=== PATIENT | male | born 1935 | race Caucasian/White ===

== ENCOUNTER → 2017-12-01 | Outpatient (CLI) | payer MEDICARE, OTHER ==
[~2017-12-01] MED LIST: DIPH50 PO; LUMIGAN2.5 ML BOTHEYES; NAPR220 PO; Toprol Xl25 MG PO
[2017-12-01 16:28] LABS: Prothrombin Time Results 83.3 Sec (9.7-11.5)
[2017-12-01 16:33] LABS: International Normalized Ratio 7.52
== END ==
LOC: LAB SHORT 13:12
PROVIDERS: Physician Assistant Surgical
DX: Z79.01 Long term (current) use of anticoagulants (principal); Z51.81 Encounter for therapeutic drug level monitoring
CPT/HCPCS: 85610

== ENCOUNTER → 2018-01-06 | Outpatient (CLI) | payer MEDICARE, OTHER | LOC: LAB SHORT 16:45 → LAB 16:45 | DX: D48.5 Neoplasm of uncertain behavior of skin (principal) | CPT/HCPCS: 88305 ==

== ENCOUNTER → 2019-03-15 | Outpatient (CLI) | payer MEDICARE, OTHER ==
[2019-03-15 17:48] LABS: International Normalized Ratio 1.2; Prothrombin Time Results 12.5 Sec (9.7-11.5)
== END ==
LOC: LAB SHORT 17:05 → LAB EV 17:05
PROVIDERS: Physician Assistant
DX: I48.91 Unspecified atrial fibrillation (principal)
CPT/HCPCS: 85610

== ENCOUNTER → 2019-03-20 | Outpatient (CLI) | payer MEDICARE, OTHER ==
[2019-03-20 18:03] LABS: International Normalized Ratio 1.08; Prothrombin Time Results 11.4 Sec (9.7-11.5)
== END | disposition home or self-care (01) ==
LOC: LAB SHORT 17:19 → LAB EV 17:19
PROVIDERS: Physician Assistant
DX: Z79.01 Long term (current) use of anticoagulants (principal); Z51.81 Encounter for therapeutic drug level monitoring
CPT/HCPCS: 85610; 85730

== ENCOUNTER → 2019-03-30 | Outpatient (CLI) | payer MEDICARE, OTHER ==
[2019-03-30 15:50] LABS: International Normalized Ratio 4.79
== END | disposition home or self-care (01) ==
LOC: LAB SHORT 14:04 → LAB EV 14:04
PROVIDERS: Physician Assistant
DX: Z79.01 Long term (current) use of anticoagulants (principal); Z51.81 Encounter for therapeutic drug level monitoring
CPT/HCPCS: 85610

== ENCOUNTER → 2019-05-02 | Outpatient (CLI) | payer MEDICARE, OTHER ==
[2019-05-02 15:02] LABS: Prothrombin Time Results >90.0 Sec (9.7-11.5)
[2019-05-02 15:04] LABS: International Normalized Ratio No Calc
== END | disposition home or self-care (01) ==
LOC: LAB SHORT 14:11 → LAB EV 14:11
PROVIDERS: General Practice
DX: Z79.01 Long term (current) use of anticoagulants (principal); Z51.81 Encounter for therapeutic drug level monitoring
CPT/HCPCS: 85610

== ENCOUNTER 2020-02-22 22:52 | Emergency (ER) | payer MEDICARE, OTHER ==
[~2020-02-22] VITALS: Ht 177.8 cm; Wt 74.8 kg
[2020-02-22 23:35] LABS: BASOPHILS ABSOLUTE AUTO 0.07 K/mm3 (0.00-0.23); BASOPHILS PERCENT AUTO 1 % (0-2); EOSINOPHILS PERCENT AUTO 6 % (0-6); Hematocrit 40.7 % (37.0-53.0); Hemoglobin 12.9 g/dL (13.5-17.5); IMMATURE GRAN ABSOLUTE AUTO 0.03 K/mm3 (0.00-0.10); IMMATURE GRAN PERCENT AUTO 0 % (0-1); LYMPHOCYTES ABSOLUTE AUTO 1.62 K/mm3 (0.84-5.20); LYMPHOCYTES PERCENT AUTO 23 % (21-46); MONOCYTES ABSOLUTE AUTO 0.66 K/mm3 (0.16-1.47); MONOCYTES PERCENT AUTO 9 % (4-13); Mean Corpuscular HGB 31.4 pg (26.0-34.0); Mean Corpuscular HGB Conc 31.7 g/dL (31.5-36.5); Mean Corpuscular Volume 99 fL (80-100); Mean Platelet Volume 11.3 fL (9.1-12.4); NEUTROPHILS ABSOLUTE AUTO 4.33 K/mm3 (1.96-9.15); NEUTROPHILS PERCENT AUTO 61 % (41-73); Platelet Count 196 K/mm3 (150-400); RDW Standard Deviation 50.8 fL (35.1-46.3); Red Blood Cell Count 4.11 M/mm3 (4.30-5.90); White Blood Cell Count 7.11 K/mm3 (4.00-11.30)
[2020-02-22 23:49] LABS: Bun/Creatinine Ratio 22.1 (12.0-20.0); Calcium, Blood 8.7 mg/dL (8.5-10.1); Creatinine, Blood 1.31 mg/dL (0.60-1.20); International Normalized Ratio 2.65; Potassium, Blood 4.1 mmol/L (3.5-5.5); Prothrombin Time Results 26.8 Sec (9.7-11.5)
[2020-02-23] MEDS ORDERED: WARF1 (00:47)
== END 2020-02-23 01:04 | disposition home or self-care (01) ==
LOC: ER 22:52
PROVIDERS: Emergency Medicine
DX: S61.512A Laceration without foreign body of left wrist, initial encounter (principal); S51.812A Laceration without foreign body of left forearm, initial encounter; S00.83XA Contusion of other part of head, initial encounter; S60.012A Contusion of left thumb without damage to nail, initial encounter; I50.9 Heart failure, unspecified; W19.XXXA Unspecified fall, initial encounter
CPT/HCPCS: 36415; 70450; 70486; 80048; 85025; 85610; 99284-25

== ENCOUNTER 2020-02-26 12:32 | Emergency (ER) | payer MEDICARE, OTHER ==
[~2020-02-26] VITALS: Ht 170.2 cm; Wt 74.8 kg
[~2020-02-26 12:32] MED LIST changes: +WARF1
== END 2020-02-26 13:58 | disposition home or self-care (01) ==
LOC: ER 12:32
DX: S51.812D Laceration without foreign body of left forearm, subsequent encounter (principal); S51.811D Laceration without foreign body of right forearm, subsequent encounter; I50.9 Heart failure, unspecified
CPT/HCPCS: 99282

== ENCOUNTER 2020-04-23 15:44 | Inpatient (IN) | payer MEDICARE, OTHER ==
[~2020-04-23] VITALS: Ht 167.6 cm; Wt 72.0 kg
[2020-04-23] MEDS ORDERED: WARF5 PO (16:04)
[2020-04-23] MEDS ORDERED: FURO40 PO (16:06)
[2020-04-23] MEDS ORDERED: METO25ER PO (16:06)
[2020-04-23] MEDS ORDERED: Combigan Eye Dro5 ML BOTHEYES (16:07)
[2020-04-23] MEDS ORDERED: LUMIGAN2.5 ML BOTHEYES (16:07)
[2020-04-23 16:10] LABS: BASOPHILS ABSOLUTE AUTO 0.06 K/mm3 (0.00-0.23); BASOPHILS PERCENT AUTO 1 % (0-2); EOSINOPHILS ABSOLUTE AUTO 0.01 K/mm3 (0.00-0.68); EOSINOPHILS PERCENT AUTO 0 % (0-6); Hematocrit 25.5 % (37.0-53.0); Hemoglobin 7.8 g/dL (13.5-17.5); IMMATURE GRAN ABSOLUTE AUTO 0.11 K/mm3 (0.00-0.10); IMMATURE GRAN PERCENT AUTO 1 % (0-1); LYMPHOCYTES ABSOLUTE AUTO 1.86 K/mm3 (0.84-5.20); LYMPHOCYTES PERCENT AUTO 15 % (21-46); MONOCYTES ABSOLUTE AUTO 0.89 K/mm3 (0.16-1.47); MONOCYTES PERCENT AUTO 7 % (4-13); Mean Corpuscular HGB 30.4 pg (26.0-34.0); Mean Corpuscular HGB Conc 30.6 g/dL (31.5-36.5); Mean Corpuscular Volume 99 fL (80-100); Mean Platelet Volume 12.5 fL (9.1-12.4); NEUTROPHILS ABSOLUTE AUTO 9.91 K/mm3 (1.96-9.15); NEUTROPHILS PERCENT AUTO 77 % (41-73); Platelet Count 170 K/mm3 (150-400); RDW Coefficient Variation 13.5 % (11.7-14.2); RDW Standard Deviation 47.9 fL (35.1-46.3); Red Blood Cell Count 2.57 M/mm3 (4.30-5.90); White Blood Cell Count 12.84 K/mm3 (4.00-11.30)
[2020-04-23 16:30] LABS: Prothrombin Time Results 54.5 Sec (9.7-11.5)
[2020-04-23 16:35] LABS: Alanine Aminotransfer (ALT/SGP 17 U/L (12-78); Albumin/Globulin Ratio 1.1 (0.8-1.8); Alk Phos 46 U/L (50-136); Anion Gap 9 mmol/L (6-16); Aspartate Aminotrans (AST/SGOT 34 U/L (12-37); Bilirubin, Total 0.5 mg/dL (0.1-1.0); Blood Urea Nitrogen 75 mg/dL (8-24); Bun/Creatinine Ratio 73.5 (12.0-20.0); CO2, Blood 21 mmol/L (21-32); Chloride, Blood 109 mmol/L (98-108); Creatinine, Blood 1.02 mg/dL (0.60-1.20); Globulin, Blood 2.8 g/dL (2.2-4.0); Glomerular Filtration Rate >60 (60-); Glucose, Blood 131 mg/dL (70-99); Potassium, Blood 4.5 mmol/L (3.5-5.5); Sodium, Blood 139 mmol/L (136-145); Total Protein, Blood 5.8 g/dL (6.4-8.2)
[2020-04-23 16:39] LABS: International Normalized Ratio 5.62
--- NOTE | 2020-04-23 19:20 | NUR ---
SHIFT SUMMARY: PT ARRIVED FROM ED 1817. UNIT OF BLOOD RUNNING AND PROTONIX GTT. AFIB 104 ON TELE. ALERT AND ORIENTED, COOPERATIVE, PALE. BLACK SMEAR NOTED TO ED BLANKETS. DR RAGLAND PLANS TO SEE PT IN AM. NO ACUTE NEEDS OR CONCERNS AT THIS TIME.
[2020-04-24 03:52] LABS: Hematocrit 24.8 % (37.0-53.0); Hemoglobin 7.9 g/dL (13.5-17.5)
[2020-04-24 04:06] LABS: International Normalized Ratio 1.35
[2020-04-24 04:10] LABS: Prothrombin Time Results 14.2 Sec (9.7-11.5)
[2020-04-24 04:14] LABS: Anion Gap 8 mmol/L (6-16); Blood Urea Nitrogen 56 mg/dL (8-24); Bun/Creatinine Ratio 57.7 (12.0-20.0); CO2, Blood 25 mmol/L (21-32); Calcium, Blood 7.7 mg/dL (8.5-10.1); Chloride, Blood 111 mmol/L (98-108); Creatinine, Blood 0.97 mg/dL (0.60-1.20); Glomerular Filtration Rate >60 (60-); Glucose, Blood 103 mg/dL (70-99); Potassium, Blood 3.6 mmol/L (3.5-5.5); Sodium, Blood 144 mmol/L (136-145)
[2020-04-24 05:44] LABS: Hematocrit 24.7 % (37.0-53.0)
--- NOTE | 2020-04-24 05:56 | NUR ---
SHIFT SUMMARY PT REMAINS A&O X4, 1 PERSON ASSIST IN TH E ROOM USING FWW. PT HAS DENIED ANY DIZZINESS,CP/PRESSURE. PROTONIX GTT INFUSING PER EMAR, ZOFRAN GIVEN X1 PER PT REQUEST. NO EMESIS/STOOLS NOTED THROUGH THE NIGHT. PT HAS RECIEVED A TOTAL OF 2 UNITS PRBC'S & 2 UNITS FFP PER ORDERS, NS CURRENTLY INFUSING @ 75 ML/HR. PT IS HYPOTENSIVE THIS AM BUT REMAINS ASYMPTOMATIC. SMALL SIPS OF CLEARS TOLERATED THROUGH THE NIGHT. PT DENIES PAIN. WTCM, CALL LIGHT IN REACH.
[2020-04-24 08:04] LABS: Hematocrit 24.9 % (37.0-53.0)
--- NOTE | 2020-04-24 10:35 | NUR ---
UPDATE PT ALERT AND ORIENTED. VSS. BP LOW THIS AM. HOLDING METOPROLOL UNTIL AFTER PROCEDURE. GI FOLLOWING PT AND PLAN FOR ENDOSCOPY. DAY SURGERY NURSE HERE TO TAKE PT. WILL AWAIT RETURN.
--- NOTE | 2020-04-24 10:55 | NUR ---
PT INTO SDS VIA GURNEY FROM PCU. History, Chart, Medications and Allergies reviewed before start of procedure. Lungs clear T/O to Auscultation. Patient confirms NPO status and agrees with scheduled surgery.
--- NOTE | 2020-04-24 11:13 | NUR ---
04/24/20 1113 LISA BREEN History, Chart, Medications and Allergies reviewed before start of procedure. 3-LEAD EKG REVIEWED WITH PHYSICIAN PRIOR TO START OF PROCEDURE. O2 VIA N/C INTACT THROUGHOUT SEDATION/PROCEDURE. MONITOR INTACT WITH CONTINUOUS PULSE OXIMETRY AND INTERMITTENT BP. MAC WITH DR. RIVERS.
--- NOTE | 2020-04-24 12:13 | NUR ---
UPDATE PT RETURNED FROM RECOVERY. VS STABLE. 02 SATS REMAIN ABOVE 90% ON RA. BP LOW, BUT STABLE. PT DENIES ANY PAIN. PT TO STAY NPO UNTIL UPPER GI XR THIS AFTERNOON. WILL CONTINUE TO MONITOR CLOSELY.
[2020-04-24 14:24] LABS: Hematocrit 26.1 % (37.0-53.0); Hemoglobin 8.3 g/dL (13.5-17.5)
--- NOTE | 2020-04-24 17:34 | NUR ---
SHIFT SUMMARY PT ALERT AND ORIENTED. VS STABLE. O2 SATS REMAIN ABOVE 90% ON RA. PT DENIES ANY PAIN. PT HAD EGD TODAY AND UPPER GI XR. PT HAS NOT HAD ANY MELENA OR EMESIS THIS SHIFT. NS INFUSING PER ORDERS. PT ABLE TO AMBULATE TO BATHROOM NEEDED WITH SBA. PT DENIES ANY DIZZINESS. WILL CONTINUE TO MONITOR AND REPORT TO ONCOMING RN. CALL LIGHT IN REACH.
[2020-04-24 19:55] LABS: Hematocrit 25.9 % (37.0-53.0); Hemoglobin 8.1 g/dL (13.5-17.5)
[2020-04-24] MEDS ORDERED: LATANOPROST2.5 M1 BOTHEYES (20:41)
[2020-04-24] MEDS ORDERED: TIMDOROPSO BOTHEYES (20:44)
[2020-04-24] MEDS ORDERED: Alphagan P 5ML5 ML BOTHEYES (20:51)
[2020-04-25 02:12] LABS: Hematocrit 25.7 % (37.0-53.0); Hemoglobin 8.3 g/dL (13.5-17.5)
--- NOTE | 2020-04-25 04:42 | NUR ---
SHIFT SUMMARY: PATIENT CONFUSED/DISORIENTED UPON AWAKING, HGB STABLE AT THIS TIME, NO OTHER ISSUES NOTED. CALL LIGHT WITHIN REACH, VSS, BED LOW AND LOCKED WITH EXIT ALARM ON.
[2020-04-25] MEDS ORDERED: NAPR500 PO (08:40)
[2020-04-25] MEDS ORDERED: PANT40 PO (11:11)
[2020-04-25] MEDS ORDERED: ACET325 PO (11:13)
--- NOTE | 2020-04-25 14:10 | NUR ---
UPDATE PT ALERT AND ORIENTED. VS STABLE. HR NSR. BP STABLE. DR. LUIS IN THIS AM WITH PLANS FOR DISCHARGE. DISCHARGE INSTRUCTIONS PROVIDED TO PT AND OVER THE PHONE. ALL QUESTIONS ASNWERED. PLAN FOR DAUGHTER TO COME LABOR EMPLOYMENT ASSOCIATE PT. PT TO BE TAKEN OUT BY WC WHEN DAUGHTER ARRIVES.
--- NOTE | 2020-04-25 15:27 | NUR ---
Spiritual care visit conducted. Patient informs me that he is in the DC process. Patient tells me about his medical history and his current treatment. Patient talks about his Seventh Day Episcopal beliefs and his 's Anabaptist beliefs and how they make all that work. Patient tells me about his family and career history. Patient shows no signs of spiritual distress. I listen empathically empathically and provide companionship and prayer. Patient responds well and voices appreciation for the prayer.
== END 2020-04-25 14:46 | disposition home health service (06) | DRG 378 ==
LOC: ER 15:44 → PCU 17:50
PROVIDERS: Emergency Medicine; ADMIT Internal Medicine
PROC: 30233N1 Transfusion of Nonautologous Red Blood Cells into Peripheral Vein, Percutaneous Approach (ICD-10-PCS; principal; 2020-04-23)
PROC: 0DD98ZX Extraction of Duodenum, Via Natural or Artificial Opening Endoscopic, Diagnostic (ICD-10-PCS; 2020-04-24)
PROC: 0DD68ZX Extraction of Stomach, Via Natural or Artificial Opening Endoscopic, Diagnostic (ICD-10-PCS; 2020-04-24)
DX: K25.4 Chronic or unspecified gastric ulcer with hemorrhage (principal); D62 Acute posthemorrhagic anemia; I48.20 Chronic atrial fibrillation, unspecified; H40.9 Unspecified glaucoma; Z79.01 Long term (current) use of anticoagulants; K29.71 Gastritis, unspecified, with bleeding; K29.81 Duodenitis with bleeding; I50.9 Heart failure, unspecified
CPT/HCPCS: 36415; 36430; 71045; 74240; 80048; 80053; 85014; 85018; 85025; 85610; 85730; 86850; 86900; 86901; 86923; 93005; 93010; 96365; 96368; 96376; 97112; 97162; 99285-25; C9113; J2370; J2405; J2704; J3430; J7030; J7120; P9016; P9059

== ENCOUNTER → 2021-01-30 | Outpatient (CLI) | payer MEDICARE, OTHER ==
[~2021-01-30] MED LIST changes: +ACET325 PO; +Alphagan P 5ML5 ML BOTHEYES; +BRIMONIDINE TART5 ML; +BRIMONIDINE TART5 ML BOTHEYES; +COMBIGAN 0.2%-0.5 ML; +Combigan Eye Dro5 ML BOTHEYES; +DONEPEZIL HCL10 M1 PO; +DONEPEZIL HCL10 MG PO; +DORZOLAMIDE-TIM10 ML; +Diclofenac Pota50 MG PO; +FERROUS FUMARAT89 M1 PO; +FERSU300 PO; +FURO40 PO; +IRON PO; +LATA.005SO; +LATANOPROST2.5 M1 BOTHEYES; +LATANOPROST2.5 M3 BOTHEYES; +LUMIGAN2.5 ML; +METO25ER PO; +METOPROLOL SUCC25 MG PO; +NAPR500 PO; +OMEP20ER PO; +PANT40 PO; +PANTOPRAZOLE SO40 M2 PO; +TAMSULOSIN HCL0.4 M1 PO; +TIMDOROPSO BOTHEYES; +WARF5 PO
[2021-01-30 18:55] LABS: BASOPHILS ABSOLUTE AUTO 0.04 K/mm3 (0.00-0.23); BASOPHILS PERCENT AUTO 1 % (0-2); EOSINOPHILS ABSOLUTE AUTO 0.08 K/mm3 (0.00-0.68); EOSINOPHILS PERCENT AUTO 2 % (0-6); Hematocrit 43.9 % (37.0-53.0); Hemoglobin 13.7 g/dL (13.5-17.5); IMMATURE GRAN ABSOLUTE AUTO 0.01 K/mm3 (0.00-0.10); IMMATURE GRAN PERCENT AUTO 0 % (0-1); LYMPHOCYTES ABSOLUTE AUTO 1.04 K/mm3 (0.84-5.20); LYMPHOCYTES PERCENT AUTO 25 % (21-46); MONOCYTES ABSOLUTE AUTO 0.35 K/mm3 (0.16-1.47); MONOCYTES PERCENT AUTO 8 % (4-13); Mean Corpuscular HGB 31.1 pg (26.0-34.0); Mean Corpuscular HGB Conc 31.2 g/dL (31.5-36.5); Mean Corpuscular Volume 100 fL (80-100); Mean Platelet Volume 10.9 fL (9.1-12.4); NEUTROPHILS ABSOLUTE AUTO 2.71 K/mm3 (1.96-9.15); NEUTROPHILS PERCENT AUTO 64 % (41-73); Platelet Count 212 K/mm3 (150-400); RDW Coefficient Variation 13.2 % (11.7-14.2); RDW Standard Deviation 48.4 fL (35.1-46.3); White Blood Cell Count 4.23 K/mm3 (4.00-11.30)
[2021-01-30 20:59] LABS: Alanine Aminotransfer (ALT/SGP 17 U/L (12-78); Albumin, Blood 3.8 g/dL (3.4-5.0); Albumin/Globulin Ratio 1.2 (0.8-1.8); Alk Phos 80 U/L (50-136); Anion Gap 5 mmol/L (6-16); Aspartate Aminotrans (AST/SGOT 15 U/L (12-37); Bilirubin, Total 0.3 mg/dL (0.1-1.0); Blood Urea Nitrogen 28 mg/dL (8-24); Bun/Creatinine Ratio 27.2 (12.0-20.0); CO2, Blood 28 mmol/L (21-32); Calcium, Blood 9.1 mg/dL (8.5-10.1); Chloride, Blood 109 mmol/L (98-108); Creatinine, Blood 1.03 mg/dL (0.60-1.20); Globulin, Blood 3.2 g/dL (2.2-4.0); Glomerular Filtration Rate >60 (60-); Glucose, Blood 93 mg/dL (70-99); Prostate Specific Antigen 0.922 ng/mL (0.000-4.000); Sodium, Blood 142 mmol/L (136-145)
== END | disposition home or self-care (01) ==
LOC: LAB 11:53 → LAB SHORT 11:53
PROVIDERS: Family Medicine
DX: I11.0 Hypertensive heart disease with heart failure (principal); I50.9 Heart failure, unspecified; N40.1 Benign prostatic hyperplasia with lower urinary tract symptoms
CPT/HCPCS: 80053; 84153; 85025

== ENCOUNTER 2021-08-07 08:29 | Inpatient (IN) | payer MEDICARE, OTHER ==
[~2021-08-07] VITALS: Ht 182.9 cm; Wt 85.7 kg
[2021-08-07 09:00] LABS: BASOPHILS ABSOLUTE AUTO 0.04 K/mm3 (0.00-0.23); BASOPHILS PERCENT AUTO 0 % (0-2); EOSINOPHILS PERCENT AUTO 0 % (0-6); Hematocrit 33.7 % (37.0-53.0); Hemoglobin 11.2 g/dL (13.5-17.5); IMMATURE GRAN ABSOLUTE AUTO 0.13 K/mm3 (0.00-0.10); IMMATURE GRAN PERCENT AUTO 1 % (0-1); LYMPHOCYTES ABSOLUTE AUTO 0.54 K/mm3 (0.84-5.20); LYMPHOCYTES PERCENT AUTO 3 % (21-46); MONOCYTES PERCENT AUTO 6 % (4-13); Mean Corpuscular HGB Conc 33.2 g/dL (31.5-36.5); Mean Corpuscular Volume 90 fL (80-100); Mean Platelet Volume 10.2 fL (9.1-12.4); NEUTROPHILS ABSOLUTE AUTO 17.74 K/mm3 (1.96-9.15); NEUTROPHILS PERCENT AUTO 90 % (41-73); Platelet Count 415 K/mm3 (150-400); RDW Coefficient Variation 12.5 % (11.7-14.2); RDW Standard Deviation 41.2 fL (35.1-46.3); Red Blood Cell Count 3.73 M/mm3 (4.30-5.90); White Blood Cell Count 19.65 K/mm3 (4.00-11.30)
[2021-08-07 09:13] LABS: Albumin, Blood 3.5 g/dL (3.4-5.0); Albumin/Globulin Ratio 0.9 (0.8-1.8); Bilirubin, Total 0.7 mg/dL (0.1-1.0); Bun/Creatinine Ratio 32.5 (12.0-20.0); Calcium, Blood 9.4 mg/dL (8.5-10.1); Creatinine, Blood 1.2 mg/dL (0.60-1.20); Globulin, Blood 3.8 g/dL (2.2-4.0); Potassium, Blood 4.3 mmol/L (3.5-5.5); Total Protein, Blood 7.3 g/dL (6.4-8.2)
[2021-08-07 12:53] LABS: Source, Urine Catheter
[2021-08-07 13:00] LABS: Appearance, Urine Clear (Clear); Bilirubin, Urine Neg (Neg); Blood, Urine 3+ (Neg); Color, Urine Yellow (P-Yellow); Glucose Qualitative, Urine Neg (Neg); Ketones, Urine 3+ (Neg); Leukocyte Esterase, Urine Neg (Neg); Nitrite, Urine Neg (Neg); Protein, Urine 1+ (Neg); Specific Gravity, Urine 1.025 (1.003-1.022); Urobilinogen, Urine NORM (Normal)
[2021-08-07 13:15] LABS: Bacteria Few /hpf; Squamous Epithelial Cells Rare /hpf (Few)
[2021-08-07 14:45] LABS: Creatine Kinase MB 9.5 ng/mL (0.0-3.6); Creatine Kinase MB Index 1.3 (0.0-4.0)
--- NOTE | 2021-08-07 17:17 | NUR ---
L AC IV STARTED IN ED WAS DC AT 1600 ORSC DT INFILTRATION. 2X ATTEMTS TO RESTART AND PATENT NEW IV 20G IN R FORARM RUNNING SMOOTHLY. ORSC.RDS
--- NOTE | 2021-08-07 17:52 | NUR ---
A PERSON IDENTIFYING MARION STEELE CALLED ASKING FOR PT INFORMATION. PT UNABLE TO IDENTIFY DAUGHT AT THIS POINT IN THE DAY. WAS CALLED TO ASK FOR VERIFICATION- NO ANSWER. MARION'S PHONE NUMBER: [phone]. END NOTE ORSC.RDS
--- NOTE | 2021-08-07 18:35 | NUR ---
CALLED 08/07/21 @ 1820 AND GAVE VERBAL OK FOR BOTH DAUGHTERS: CIARA AND MARION TO RECIEVE PT INFORMATION UPDATES AND TO SPEAK W PT. CHETNA WILL LIKELY BE DAUGHTER TO PU PT AT TIME OF D/C. END NOTE ORSC.RDS
--- NOTE | 2021-08-07 18:51 | NUR ---
CHANGE OF SHIFT REPORT GIVEN TO PMRNANNA FOR PT. PT RESTLESS AND TRANSFERED TO RECLINER CHAIR AND POSITIONED BY CHARGE NURSE STATION. IV SITE WNL. BOTH DAUGHTERS CIARA AND MARION OK TO RECIEVE PT INFO PER GURU FROM VERBAL OK IN PHONE CALL EARLY THIS EVENING. END NOTE ORSC.RDS
[2021-08-07 19:22] LABS: Hemoglobin 10.2 g/dL (13.5-17.5)
--- NOTE | 2021-08-08 05:58 | NUR ---
0554-LAB CALLED AND BLOOD CULTURES SHOW GRAM POSITIVE COCCI AND CHAINS. WILL REPORT TO DAY SHIFT RN TO REPORT BACK TO LAB RESULTS
--- NOTE | 2021-08-08 06:14 | NUR ---
PT LAYING IN BED AT LOWEST POSITION SLEEPING WITH CALL LIGHT BUTTON NEXT TO PT. PT WAS DISORIENTED MULTIPLE TIMES DURING THE NIGHT. PT WAS AWAKE MOST OF THE NIGHT. PT RECEIVED MEDS ON TIME.
[2021-08-08 06:25] LABS: BASOPHILS ABSOLUTE AUTO 0.03 K/mm3 (0.00-0.23); BASOPHILS PERCENT AUTO 0 % (0-2); EOSINOPHILS PERCENT AUTO 0 % (0-6); Hemoglobin 10.5 g/dL (13.5-17.5); IMMATURE GRAN ABSOLUTE AUTO 0.12 K/mm3 (0.00-0.10); IMMATURE GRAN PERCENT AUTO 1 % (0-1); LYMPHOCYTES ABSOLUTE AUTO 1.13 K/mm3 (0.84-5.20); LYMPHOCYTES PERCENT AUTO 6 % (21-46); MONOCYTES ABSOLUTE AUTO 1.13 K/mm3 (0.16-1.47); MONOCYTES PERCENT AUTO 6 % (4-13); Mean Corpuscular HGB 30.6 pg (26.0-34.0); Mean Corpuscular HGB Conc 32.8 g/dL (31.5-36.5); Mean Corpuscular Volume 93 fL (80-100); Mean Platelet Volume 10.1 fL (9.1-12.4); NEUTROPHILS ABSOLUTE AUTO 15.65 K/mm3 (1.96-9.15); NEUTROPHILS PERCENT AUTO 87 % (41-73); Platelet Count 330 K/mm3 (150-400); RDW Coefficient Variation 12.9 % (11.7-14.2); Red Blood Cell Count 3.43 M/mm3 (4.30-5.90); White Blood Cell Count 18.06 K/mm3 (4.00-11.30)
[2021-08-08 06:34] LABS: Alanine Aminotransfer (ALT/SGP 28 U/L (12-78); Albumin, Blood 2.8 g/dL (3.4-5.0); Albumin/Globulin Ratio 0.8 (0.8-1.8); Alk Phos 77 U/L (50-136); Anion Gap 7 mmol/L (6-16); Aspartate Aminotrans (AST/SGOT 44 U/L (12-37); Bilirubin, Total 0.4 mg/dL (0.1-1.0); Blood Urea Nitrogen 27 mg/dL (8-24); Bun/Creatinine Ratio 31.2 (12.0-20.0); CO2, Blood 22 mmol/L (21-32); Chloride, Blood 103 mmol/L (98-108); Creatinine, Blood 0.86 mg/dL (0.60-1.20); Globulin, Blood 3.4 g/dL (2.2-4.0); Glomerular Filtration Rate >60 (60-); Glucose, Blood 83 mg/dL (70-99); Magnesium, Blood 2.3 mg/dL (1.6-2.4); Potassium, Blood 3.9 mmol/L (3.5-5.5); Sodium, Blood 132 mmol/L (136-145); Total Protein, Blood 6.2 g/dL (6.4-8.2)
--- NOTE | 2021-08-08 07:55 | NUR ---
AT SHIFT CHANGE PT WAS FOUND TO MEDIUM BM AND URINARY INCONT. WOUT CHUCKS OR ATTENS BRIEF. PT AM CARE WAS ACCOMPLISHED WITH HELP FROM [facility] [facility]. END NOTE. ORSC. RDS.
--- NOTE | 2021-08-08 09:43 | NUR ---
12LEAD EKG WAS OBTAINED PER ORDERS AND PRESENTED TO FOR ASSESSMENT. STATED POSSIBLE BUNDLE BRANCH BLOCK OTHERWISE UNEVENTFUL. END NOTE ORSC.RDS.
--- NOTE | 2021-08-08 10:44 | NUR ---
PT CURRENTLY RESTING PEACEFULLY BACK IN BED AFTER BEING UP IN RECLINER CHAIR FOR 2 HOURS DURING 12LEAD EKG,BREAKFAST AND MED PASS. ASSESSED PT AND SPOKE WITH DAUGHTER MARION OVER PHONE ABOUT PT PLAN OF CARE INCLUDING COMPLETING ANTIBIOTIC REGIMENT, IMPLIMENTING OT. DAUGHTER MENTIONED PT MIGUEL STATUS AND CHANGE OF DIET WAS OKD BY . DIETARY CHANGE WAS ORDERED AT 1000 FOR LUNCH. ORSC.RDS
--- NOTE | 2021-08-08 15:49 | NUR ---
BLADDER SCAN 478CC @ 1357 08/08/21. PT URINATED IN URINAL APROX 30CC. HE WAS STRAIGHT CATH AFTER GIVEN EXPLANATION FOR REASONING. PT AGREED TO PROCEDURE. URINARY OUTPUT MET RESISTANCE WITH 14FRENCH CATH. SUCCESSFUL W 2FRENCH PEDS CATH- 500CC CATH OUTPUT @1500. PT JOON AMBULATED AND ASSESSED PT AT 1600 AND ROOM TRANSFER TO [facility]. PT RESTING. END NOTE ORSC. RDS.
--- NOTE | 2021-08-08 18:22 | NUR ---
TODAY PT DIET WAS CHANGED TO VEGITARIAN:VEGAN. RETENTION ISSUES REQUIRED STRAIGHT CATHING SUCCESSFULLY REMOVED 500CC CLEAR, ODORLESS, YELLOW URINE W PT CONSENT AND SATISFACTION POSTPROCEDURE AT 1500. PTGARRET AMBULATED PT W WALKER AND SUGGESTED CONTINUED CARE AND FUTURE IN HOME HEALTHCARE ASSISTANCE. PT SLEPT THROUGH LUNCH AND DIDN'T EAT, HOWEVER AT 75% OF DINNER AND VOICED SATISFACTION WITH MEAL. CHANGE OF SHIFT REPORT WAS GIVEN TO PM NR.
--- NOTE | 2021-08-08 20:56 | NUR ---
PT. WAS ABLE TO VOID 50ML INTO URINAL, WITH ASSISTANCE, LAYING DOWN TO GO TO SLEEP. PT. WAS ALSO BLADDER SCANNED AT 2055 SINCE EARLIER HE HAD TO BE STRAIGHT CATHED. BLADDER SHOWED 155ML IN BLADDER. PT. VERBALIZES NOT FEELING UNCOMFORTABLE OR NEEDED TO VOID AT THIS TIME. IV WAS ALSO LEAKING SO IV DRESSING CHANGE WAS DONE, IV LINE HUB WAS LOOSE, SO TIGHTENED WITH NO MORE LEAKING. PT.'S GOWN WAS WET FROM IV SO GOWN WAS ALSO CHANGED. PT. WAS GIVEN A WARM BLANKET& CALL LIGHT WAS PLACED ON HIS CHEST & PT. REMINDED WHERE HIS CALL LIGHT WAS. PT. ORIENTED TO SELF & HIS . PT. DIDN'T KNOW WHERE HE WAS AT BUT STATED "IN A PLACE WITH NICE PEOPLE." PT. WAS ORIENTED THAT HE WAS IN THE HOSPITAL. PT. DID ASK WHEN HE COULD GO HOME. PT. INSTRUCTED THAT WOULD BE UP TO THE DR. IV CONTINUES AT 100ML/HR NS ON PUMP. PT. DENIED ANY PAIN.
--- NOTE | 2021-08-09 03:18 | NUR ---
PT. WAS WOKE UP & BLADDER SCANNED FOR 373 ML AT 0253. PT. THEN SAT AT BEDSIDE & THEN STOOD WITH 2 SBA AT BEDSIDE. PT. WAS ABLE TO VOID 175ML CLEAR YELLOW URINE. PT. REPOSITIONED TO HIS LEFT SIDE ALONG WITH A PILLOW BETWEEN HIS KNEES. PT. GIVEN A WARM BLANKET. CALL LIGHT WITHIN REACH AT BEDSIDE. PT. VERBALIZED KNOWING HE WAS IN THE HOSPITAL MAKING HIM URINATE BECAUSE WHEN HE WAS A LITTLE BOY HE WOULD PEE THE BED. PT. ALSO ORIENTED TO WHAT TIME IT WAS.
--- NOTE | 2021-08-09 05:50 | NUR ---
PT. SLEPT GOOD T.O. NIGHT. PT. WAS BLADDER SCANNED X2 DURING NIGHT. PT. ABLE TO VOID 50ML BEFORE GOING TO BED & THEN WAS BLADDER SCANNED WHICH SHOWED 155ML [id number] IN BLADDER. PT. THEN WAS AWAKENED & BLADDER SCANNED FOR 373ML AT 0253, PT. THEN WAS ABLE TO VOID 175ML WHILE STANDING AT BEDSIDE WITH 2 SBA TO STEADY PT. PT. ORIENTED TO SELF & & THEN KNEW HE WAS IN HOSPITAL WHEN HE WAS AWAKENED AT 0253. PT. WAS REPOSITIONED A FEW TIMES DURING NIGHT BUT LET PT. SLEEP SINCE REPORT WAS THAT PT. WAS AWAKE MOST OF NIGHT THE NIGHT BEFORE. DAUGHTER MARION DID CALL DURING THE EVENING TO CHECK ON HER DAD. IV NS CONTINUES AT 100ML/HR. PT. DID HAVE A FEW SIPS OF FLUID DURING THE NIGHT. CALL LIGHT WAS WITHIN REACH & PT. ORIENTED TO THIS.
[2021-08-09 06:19] LABS: BASOPHILS ABSOLUTE AUTO 0.06 K/mm3 (0.00-0.23); BASOPHILS PERCENT AUTO 1 % (0-2); EOSINOPHILS ABSOLUTE AUTO 0.07 K/mm3 (0.00-0.68); EOSINOPHILS PERCENT AUTO 1 % (0-6); Hematocrit 27.4 % (37.0-53.0); Hemoglobin 8.8 g/dL (13.5-17.5); IMMATURE GRAN ABSOLUTE AUTO 0.07 K/mm3 (0.00-0.10); IMMATURE GRAN PERCENT AUTO 1 % (0-1); LYMPHOCYTES ABSOLUTE AUTO 1.33 K/mm3 (0.84-5.20); LYMPHOCYTES PERCENT AUTO 13 % (21-46); MONOCYTES ABSOLUTE AUTO 0.66 K/mm3 (0.16-1.47); MONOCYTES PERCENT AUTO 6 % (4-13); Mean Corpuscular HGB 30.4 pg (26.0-34.0); Mean Corpuscular HGB Conc 32.1 g/dL (31.5-36.5); Mean Corpuscular Volume 95 fL (80-100); Mean Platelet Volume 10.2 fL (9.1-12.4); NEUTROPHILS ABSOLUTE AUTO 8.32 K/mm3 (1.96-9.15); NEUTROPHILS PERCENT AUTO 79 % (41-73); Platelet Count 300 K/mm3 (150-400); RDW Coefficient Variation 12.9 % (11.7-14.2); Red Blood Cell Count 2.89 M/mm3 (4.30-5.90); White Blood Cell Count 10.51 K/mm3 (4.00-11.30)
[2021-08-09 06:44] LABS: Anion Gap 6 mmol/L (6-16); Blood Urea Nitrogen 20 mg/dL (8-24); Bun/Creatinine Ratio 24.6 (12.0-20.0); CO2, Blood 20 mmol/L (21-32); Calcium, Blood 7.7 mg/dL (8.5-10.1); Chloride, Blood 107 mmol/L (98-108); Creatinine, Blood 0.81 mg/dL (0.60-1.20); Glomerular Filtration Rate >60 (60-); Glucose, Blood 81 mg/dL (70-99); Potassium, Blood 3.5 mmol/L (3.5-5.5); Sodium, Blood 133 mmol/L (136-145)
--- NOTE | 2021-08-09 10:16 | NUR ---
EYE DROPS GIVEN 5 MINUTES APART.
--- NOTE | 2021-08-09 11:16 | NUR ---
PT C/O RIGHT SIDED CHEST PAIN THAT WAS CONSTANT ACHE. RN WAS NOTIFIED AND SHE SUGGESTED OFFERING AN ICE OR HEAT PACK. PT STATED HE WOULD LIKE A HEAT PACK, WHICH WAS PLACED OVER HIS GOWN ON THE RIGHT SIDE OF HIS CHEST. PT STATED IT FELT COMFORT. HE TOOK TWO SIPS OF WATER AND THE HOB WAS LOWERED FOR PT TO SLEEP.
--- NOTE | 2021-08-09 12:49 | NUR ---
REPORTED FROM ELIAZAR MARCUS THAT PT WAS HAVING RIGHT UPPER CHEST PAIN. VS STABLE. PT WANTED TO TRY HEAT PACK. REASSESSED PT AFTER 30 MINUTES AND PT DOES NOT COMPLAIN OF PAIN AT THIS TIME. WILL CONTINUE TO MONITOR.
--- NOTE | 2021-08-09 14:15 | NUR ---
LATE ENTRY FROM 12:35PM. IV FLUIDS STOPPED PER DR ORDER.
--- NOTE | 2021-08-09 18:06 | NUR ---
ELBOW DRESSING SOILED. REMOVED DRESSING, CLEANSED WITH NS. PAT DRY. XEROFORM PLACED ON WOUND, COVERED WITH NON ADHERENT DRESSING, COVERED WITH KERLX. PT TOLERATED WITHOUT COMPLAINTS OR COMPLICATIONS. WILL MONITOR FOR CHANGE IN STATUS.
--- NOTE | 2021-08-09 18:37 | NUR ---
LATE ENTRY- AT 1645 PT WAS NOTED TO HAVE DRY CRACKED LIPS SEVERAL HOURS AFTER I HAD APPLIED THE LIP AND MOUTH MOISTURIZER. RN WAS NOTIFIED AND SHE SUGGESTED APPLYING THE [employer] CHAPSTICK (PETROLEUM-FREE) IN THE WHITE AND GREEN TUBE. I HAVE SINCE APPLIED IT TWICE AND PT IS TOLERATING IT WELL. HE STATES NEEDING TO USE CHAPSTICK OFTEN AND I HAVE BEEN APPLYING EACH TIME I CHECK ON THE PT.
--- NOTE | 2021-08-10 02:50 | NUR ---
PT TRYING TO GET OUT OF BED, SAYS "I NEED TO GO FIND OUT WHERE MY MOMMA IS." PT RE-ORIENTED AND HELPED BACK INTO BED.
[2021-08-10 05:03] LABS: BASOPHILS ABSOLUTE AUTO 0.06 K/mm3 (0.00-0.23); BASOPHILS PERCENT AUTO 1 % (0-2); EOSINOPHILS ABSOLUTE AUTO 0.13 K/mm3 (0.00-0.68); EOSINOPHILS PERCENT AUTO 1 % (0-6); Hematocrit 30.7 % (37.0-53.0); Hemoglobin 9.8 g/dL (13.5-17.5); IMMATURE GRAN ABSOLUTE AUTO 0.06 K/mm3 (0.00-0.10); IMMATURE GRAN PERCENT AUTO 1 % (0-1); LYMPHOCYTES ABSOLUTE AUTO 1.13 K/mm3 (0.84-5.20); LYMPHOCYTES PERCENT AUTO 9 % (21-46); MONOCYTES ABSOLUTE AUTO 0.55 K/mm3 (0.16-1.47); MONOCYTES PERCENT AUTO 5 % (4-13); Mean Corpuscular HGB 29.9 pg (26.0-34.0); Mean Corpuscular HGB Conc 31.9 g/dL (31.5-36.5); Mean Corpuscular Volume 94 fL (80-100); Mean Platelet Volume 10.3 fL (9.1-12.4); NEUTROPHILS PERCENT AUTO 84 % (41-73); Platelet Count 380 K/mm3 (150-400); RDW Coefficient Variation 12.9 % (11.7-14.2); RDW Standard Deviation 44.2 fL (35.1-46.3); Red Blood Cell Count 3.28 M/mm3 (4.30-5.90); White Blood Cell Count 12.03 K/mm3 (4.00-11.30)
--- NOTE | 2021-08-10 05:11 | NUR ---
YULIA IS A PLEASNT GENTLEMAN, JOLLY VERY CONFUSED AT TIMES. REFUSES TO USE THE CALL LIGHT TO ALERT STAFF, BUT BED ALARM HAS BEEN EFFECTIVE. HE HAS BEEN UP TO VOID USING THE URINAL SEVERAL TIMES TONIGHT, WHICH DOES WELL WITH SOME ASSISTANCE. HE IS PRODUCING ADEQUATE AMOUNTS OF URINE. NO BM THIS SHIFT. HE ONLY ONCE WAS TRYING TO GET OUT OF BED TO "GO SEE WHERE HIS MOMMA IS" BUT WITH SOME GENTLE RE-ORIENTATION, HE ACCEPTED THAT HE WAS IN FACT IN THE HOSPITAL AND WENT BACK TO BED.
[2021-08-10 05:30] LABS: Anion Gap 5 mmol/L (6-16); Blood Urea Nitrogen 13 mg/dL (8-24); Bun/Creatinine Ratio 16.1 (12.0-20.0); CO2, Blood 24 mmol/L (21-32); Chloride, Blood 104 mmol/L (98-108); Creatinine, Blood 0.81 mg/dL (0.60-1.20); Glomerular Filtration Rate >60 (60-); Glucose, Blood 97 mg/dL (70-99); Potassium, Blood 3.9 mmol/L (3.5-5.5); Sodium, Blood 133 mmol/L (136-145)
--- NOTE | 2021-08-10 11:23 | NUR ---
PT WAS UP TO CHAIR FOR APPROX 45 MINUTES. PT TRANSFERRED BACK TO BED VIA WALKER. BED IN LOWEST POSITION, BED ALARM SET, AND CALL LIGHT AT BEDSIDE WITHIN REACH.
--- NOTE | 2021-08-10 18:17 | NUR ---
WHEN PT WAS SITTING ON THE TOILET, HE SCRATCHED HIS BACK CAUSING SMALL TEARS. HE STATED HIS BACK WAS ITCHY. I RUBBED HIS BACK, WIPED IT DOWN WITH A WARM WIPE AND APPLIED LOTION. HE WAS SEATED IN THE RECLINER. RN NOTED.
--- NOTE | 2021-08-10 18:43 | NUR ---
DRESSING CHANGE ON RT POSTERIOR FOREARM/ELBOW. CLEANED WITH NS, PAT DRY, AND COVERED WITH NON ABSORBENT PAD WITH KERLX. SLIGHT BLEEDING NOTED. PRESSURE APPLIED. NO REDNESS OR SWELLING NOTED. PT TRANSFERRED BACK TO BED VIA WALKER AND GAIT BELT. BED ALARM ON AND CALL LIGHT AT BEDSIDE WITHIN REACH.
--- NOTE | 2021-08-11 04:21 | NUR ---
PT WITH INCREASED CONFUSION THROUGH THE NIGHT, MANY ATTEMPTS TO GET OUT OF BED. PT REORIENTATED TO PLACE AND TIME BY ALL STAFF ENTERING PT'S ROOM TO HELP BACK TO BED AND USE THE URINAL. BED ALARM ON WITH HIGH SENSITIVITY TO MOVEMENT KEEPING THE PT SAFE. BED IN LOW, LOCKED POSITION, CALL LIGHT IN REACH.
[2021-08-11 06:13] LABS: BASOPHILS ABSOLUTE AUTO 0.05 K/mm3 (0.00-0.23); BASOPHILS PERCENT AUTO 1 % (0-2); EOSINOPHILS ABSOLUTE AUTO 0.29 K/mm3 (0.00-0.68); EOSINOPHILS PERCENT AUTO 3 % (0-6); Hematocrit 28.5 % (37.0-53.0); IMMATURE GRAN ABSOLUTE AUTO 0.06 K/mm3 (0.00-0.10); IMMATURE GRAN PERCENT AUTO 1 % (0-1); LYMPHOCYTES ABSOLUTE AUTO 1.22 K/mm3 (0.84-5.20); LYMPHOCYTES PERCENT AUTO 12 % (21-46); MONOCYTES ABSOLUTE AUTO 0.63 K/mm3 (0.16-1.47); MONOCYTES PERCENT AUTO 6 % (4-13); Mean Corpuscular HGB 29.6 pg (26.0-34.0); Mean Corpuscular HGB Conc 31.6 g/dL (31.5-36.5); Mean Corpuscular Volume 94 fL (80-100); Mean Platelet Volume 10.2 fL (9.1-12.4); NEUTROPHILS ABSOLUTE AUTO 7.81 K/mm3 (1.96-9.15); NEUTROPHILS PERCENT AUTO 78 % (41-73); Platelet Count 363 K/mm3 (150-400); RDW Coefficient Variation 12.7 % (11.7-14.2); RDW Standard Deviation 43.5 fL (35.1-46.3); Red Blood Cell Count 3.04 M/mm3 (4.30-5.90); White Blood Cell Count 10.06 K/mm3 (4.00-11.30)
[2021-08-11 06:36] LABS: Anion Gap 5 mmol/L (6-16); Blood Urea Nitrogen 12 mg/dL (8-24); Bun/Creatinine Ratio 13.7 (12.0-20.0); CO2, Blood 25 mmol/L (21-32); Calcium, Blood 8.7 mg/dL (8.5-10.1); Chloride, Blood 104 mmol/L (98-108); Creatinine, Blood 0.88 mg/dL (0.60-1.20); Glomerular Filtration Rate >60 (60-); Glucose, Blood 100 mg/dL (70-99); Potassium, Blood 3.5 mmol/L (3.5-5.5); Sodium, Blood 134 mmol/L (136-145)
--- NOTE | 2021-08-11 07:37 | NUR ---
WHEN OBTAINING VITALS, THE PT C/O HIS HANDS BEING COLD. I PLACED A HEAT PACK ON TOP OF HIS HANDS AND GAVE HIM A WARM BLANKET. PT EXPRESSED GRATITUDE. CHAPSTICK APPLIED WELL.
--- NOTE | 2021-08-11 09:17 | NUR ---
IV LEAKING. REMOVED DRESSED AND REAPPLIED TEGADERM DRESSING. FLUSHED WITH 5ML NS. WNL.
[2021-08-11 10:02] LABS: Percent Saturation 7.7 % (20.0-50.0)
[2021-08-11 11:11] LABS: Hematocrit 27.1 % (37.0-53.0); Hemoglobin 8.8 g/dL (13.5-17.5)
--- NOTE | 2021-08-11 12:17 | NUR ---
PT UP TO CHAIR AFTER PT FOR LUNCH. PT ATE AND IS NOW RESTING IN CHAIR.
[2021-08-11 13:40] LABS: Stool Occult Blood Guaiac 1 Pos (Neg)
--- NOTE | 2021-08-11 17:02 | NUR ---
CHECKED ON PT. PT SITTING UPRIGHT IN BED. OFFERED ASSISTANCE FOR UP IN CHAIR FOR DINNER. PT STATES THAT HE WOULD LIKE TO STAY IN BED FOR DINNER. BED IN LOWEST POSITION. BED ALARM ON. CALL LIGHT IN REACH.
[2021-08-11 17:26] LABS: Hematocrit 27.1 % (37.0-53.0)
--- NOTE | 2021-08-11 20:38 | NUR ---
BEGINGING OF SHIFT SUMMARY PT LYING IN BED WITH EYES CLOSED, RESTING COMFORTABLY. IV IN RIGHT UPPER ARM SALINE LOCKED. SOME WEEPING NOTED FROM PREVIOUS IV SITE ON RIGHT FOREARM. BACITRACIN AND NON-STICK PAD PLACED. ROM ALL EXTRMITIES, NO COMPLAINTS OF PAIN. BOWEL TONES ALL QUADRANTS. LUNGS CTA. SIDERAILS UP X3. CALL LIGHT WITHIN REACH. BED IN LOWEST POSITION. WILL CONTINUE TO MONITOR.
[2021-08-11 22:35] LABS: Hematocrit 27.6 % (37.0-53.0)
[2021-08-12 06:01] LABS: Hematocrit 27.6 % (37.0-53.0); Hemoglobin 8.8 g/dL (13.5-17.5)
--- NOTE | 2021-08-12 06:42 | NUR ---
END OF SHIFT SUMMARY PT REMAINED PLEASENT THROUGHOUT THE NIGHT WITH ONE ATTEMPT TO GET OUT OF BED. PT ORIENTED TO PERSON, PLACE, AND TIME. DOESN'T USE CALL LIGHT BUT DOES CALL OUT WHEN IN NEED OF ASSISTANCE. RE-DRESSED WOUND TO THE RIGHT ELBOW. BANDAGE LEFT ANKLE AND CORN PAD TO BOTTOM OF LEFT FOOT INTACT. SOME SCATTERED SCABS TO THE BILATERAL ARMS AND LEGS. NO CHANGE IN BRUISING OF BILATERAL ARMS. WILL REPORT TO DAY SHIFT RN.
--- NOTE | 2021-08-12 12:08 | NUR ---
NAIDA ASSESSED PT STATUS AND DETERMINED PT READY FOR DC W ORAL ANTIBIOTICS AND IRON SUPLIMENT FOR ANEMIA. AND DAUGHTER CALLED INDIVIDUALLY FOR STATUS UPDATES ON PT AND INFORMED OF IMPENDING DC STATUS OF PT. MARION DAUGHTER VOICED CONCERNS ABOUT PTS ABILITY TO CARE FOR SELF. WAS NOTIFIED AND RESTATED PT READY FOR DC. CAR SUPPLIER CHLOE WAS CONTACTED FOR HOME HEALTH SERVICE OPTIONS AND TO SUPPLY PT WITH WALKER RECOMMENDED BY PT JOON EARLIER THIS WEEK. MARION STATES OTHER SISTER CIARA WILL BE PERSON TO COLLECT PT AND TRANSPORT HOME TO FIRST FLOOR BUILDING WITH . END NOTE ORSC.RDS.
[2021-08-12] MEDS ORDERED: VISBIOME 112.51 EACH PO (13:58)
[2021-08-12] MEDS ORDERED: Amoxicillin500 MG PO (14:00)
[2021-08-12] MEDS ORDERED: FERSU300 PO (14:01)
[2021-08-12] MEDS ORDERED: PANT20 PO (14:02)
--- NOTE | 2021-08-12 16:08 | NUR ---
PT DC NOTE: PT DC AT 1600. PT AMBULATED W WALKER SUPPLIED BY HOSPITAL TO CAR OF SABRINA OF DAUGHTER CIARA. PT WAS DC WITH ALL PERSONAL ITEMS INCLUDING CLOTHING,SHOES, WRIST WATCH. IV R WRIST DC PRIOR TO PT DC. ALL SCRIPTS FAXD TO [facility] PER ,PT AND DAUGHTERS AND CONFIRMED RECIEVED W PHARMASIST. PT VERBALLY STATED READINESS TO DC AND VOICED GRATITUDE FOR EFFORTS MADE BY NURSING STAFF. PT WAS PLEASANT AND IN GOOD SPIRTS AT TIME OF DC. END NOTE ORSC.RDS
== END 2021-08-12 15:33 | disposition home or self-care (01) | DRG 814 ==
LOC: ER 08:29 → MEDS 08:30 → ORSCIP 15:04
PROVIDERS: Family Medicine; Internal Medicine; Nurse Practitioner Acute Care; ADMIT Family Medicine
DX: D72.829 Elevated white blood cell count, unspecified (principal); R65.11 Systemic inflammatory response syndrome (SIRS) of non-infectious origin with acute organ dysfunction; N17.9 Acute kidney failure, unspecified; I50.32 Chronic diastolic (congestive) heart failure; E87.1 Hypo-osmolality and hyponatremia; R53.1 Weakness; R11.2 Nausea with vomiting, unspecified; D50.9 Iron deficiency anemia, unspecified; K80.20 Calculus of gallbladder without cholecystitis without obstruction; G30.9 Alzheimer's disease, unspecified; F02.80 Dementia in other diseases classified elsewhere, unspecified severity, without behavioral disturbance, psychotic disturbance, mood disturbance, and anxiety; N18.30 Chronic kidney disease, stage 3 unspecified; I48.0 Paroxysmal atrial fibrillation; N40.0 Benign prostatic hyperplasia without lower urinary tract symptoms; Z79.899 Other long term (current) drug therapy
CPT/HCPCS: 36415; 51798; 70450; 71045; 74177; 80048; 80053; 81001; 82272; 82550; 82553; 82728; 83540; 83550; 83605; 83735; 85014; 85018; 85025; 87040; 93005; 93010; 96372; 97110; 97116; 97161; 97530; 99285-25; A9270; C9113; G0378; J0290; J0696; J1650; J2916; J7030; Q9967

== ENCOUNTER 2022-02-20 16:29 | Emergency (ER) | payer MEDICARE ==
[~2022-02-20] VITALS: Ht 162.6 cm; Wt 56.7 kg
[2022-02-20 17:24] LABS: Albumin, Blood 3.1 g/dL (3.4-5.0); Albumin/Globulin Ratio 0.8 (0.8-1.8); Bilirubin, Total 0.5 mg/dL (0.1-1.0); Calcium, Blood 8.4 mg/dL (8.5-10.1); Creatinine, Blood 1.57 mg/dL (0.60-1.20); Globulin, Blood 3.7 g/dL (2.2-4.0); Potassium, Blood 4.6 mmol/L (3.5-5.5); Total Protein, Blood 6.8 g/dL (6.4-8.2)
[2022-02-20 17:26] LABS: BASOPHILS ABSOLUTE AUTO 0.03 K/mm3 (0.00-0.23); BASOPHILS PERCENT AUTO 0 % (0-2); EOSINOPHILS ABSOLUTE AUTO 0.02 K/mm3 (0.00-0.68); EOSINOPHILS PERCENT AUTO 0 % (0-6); Hematocrit 20.1 % (37.0-53.0); IMMATURE GRAN ABSOLUTE AUTO 0.09 K/mm3 (0.00-0.10); IMMATURE GRAN PERCENT AUTO 1 % (0-1); LYMPHOCYTES ABSOLUTE AUTO 0.84 K/mm3 (0.84-5.20); LYMPHOCYTES PERCENT AUTO 7 % (21-46); MONOCYTES ABSOLUTE AUTO 0.71 K/mm3 (0.16-1.47); MONOCYTES PERCENT AUTO 6 % (4-13); Mean Corpuscular HGB Conc 28.9 g/dL (31.5-36.5); Mean Corpuscular Volume 97 fL (80-100); Mean Platelet Volume 10.4 fL (9.1-12.4); NEUTROPHILS ABSOLUTE AUTO 11.05 K/mm3 (1.96-9.15); NEUTROPHILS PERCENT AUTO 87 % (41-73); NRBC ABSOLUTE 0.02 K/mm3 (0.00-0.02); NRBC Auto 0.2 /100 WBC (0.0-0.2); Platelet Count 398 K/mm3 (150-400); RDW Coefficient Variation 15.7 % (11.7-14.2); RDW Standard Deviation 52.6 fL (35.1-46.3); Red Blood Cell Count 2.07 M/mm3 (4.30-5.90); White Blood Cell Count 12.74 K/mm3 (4.00-11.30)
[2022-02-20 17:36] LABS: Hemoglobin 5.8 g/dL (13.5-17.5)
[2022-02-20 21:17] LABS: Influenza A, PCR NEGATIVE (NEGATIVE); Influenza B, PCR NEGATIVE (NEGATIVE); Resp Syncytial Virus, PCR NEGATIVE (NEGATIVE); SARS-Cov-2 (COVID-19) PCR, MMC NEGATIVE (NEGATIVE)
== END 2022-02-20 22:15 | disposition short-term general hospital (02) ==
LOC: ER 16:29
PROVIDERS: Physician Assistant
DX: K92.2 Gastrointestinal hemorrhage, unspecified (principal); D64.9 Anemia, unspecified; I48.91 Unspecified atrial fibrillation; I50.9 Heart failure, unspecified
CPT/HCPCS: 0241U; 36415; 74177; 80053; 83605; 85025; 86850; 86900; 86901; 86923; 93005; 93010; C9113; J7030; P9016; Q9967

== ENCOUNTER → 2022-02-20 | Outpatient (CLI) | payer MEDICARE ==
[~2022-02-20] MED LIST changes: +Amoxicillin500 MG PO; +PANT20 PO; +VISBIOME 112.51 EACH PO
[2022-02-20 15:51] LABS: BASOPHILS ABSOLUTE AUTO 0.03 K/mm3 (0.00-0.23); BASOPHILS PERCENT AUTO 0 % (0-2); EOSINOPHILS ABSOLUTE AUTO 0.03 K/mm3 (0.00-0.68); EOSINOPHILS PERCENT AUTO 0 % (0-6); Hematocrit 18.1 % (37.0-53.0); IMMATURE GRAN ABSOLUTE AUTO 0.07 K/mm3 (0.00-0.10); IMMATURE GRAN PERCENT AUTO 1 % (0-1); LYMPHOCYTES ABSOLUTE AUTO 0.93 K/mm3 (0.84-5.20); LYMPHOCYTES PERCENT AUTO 7 % (21-46); MONOCYTES ABSOLUTE AUTO 0.66 K/mm3 (0.16-1.47); MONOCYTES PERCENT AUTO 5 % (4-13); Mean Corpuscular HGB 29.1 pg (26.0-34.0); Mean Corpuscular HGB Conc 30.4 g/dL (31.5-36.5); Mean Corpuscular Volume 96 fL (80-100); Mean Platelet Volume 10.3 fL (9.1-12.4); NEUTROPHILS ABSOLUTE AUTO 10.81 K/mm3 (1.96-9.15); NEUTROPHILS PERCENT AUTO 86 % (41-73); Platelet Count 370 K/mm3 (150-400); RDW Coefficient Variation 15.9 % (11.7-14.2); RDW Standard Deviation 52.9 fL (35.1-46.3); Red Blood Cell Count 1.89 M/mm3 (4.30-5.90); White Blood Cell Count 12.53 K/mm3 (4.00-11.30)
[2022-02-20 15:55] LABS: Hemoglobin 5.5 g/dL (13.5-17.5)
[2022-02-20 16:03] LABS: Albumin, Blood 2.9 g/dL (3.4-5.0); Albumin/Globulin Ratio 0.9 (0.8-1.8); Bilirubin, Total 0.4 mg/dL (0.1-1.0); Bun/Creatinine Ratio 21.1 (12.0-20.0); Creatinine, Blood 1.61 mg/dL (0.60-1.20); Globulin, Blood 3.1 g/dL (2.2-4.0); Potassium, Blood 4.5 mmol/L (3.5-5.5)
== END ==
LOC: LAB SHORT 15:47
PROVIDERS: Physician Assistant
DX: R10.9 Unspecified abdominal pain (principal)
CPT/HCPCS: 80053; 83690; 85025

== ENCOUNTER 2022-02-23 09:07 | Emergency (ER) | payer MEDICARE ==
[~2022-02-23] VITALS: Ht 160 cm; Wt 68.0 kg
[2022-02-23 10:08] LABS: BASOPHILS ABSOLUTE AUTO 0.04 K/mm3 (0.00-0.23); BASOPHILS PERCENT AUTO 1 % (0-2); EOSINOPHILS ABSOLUTE AUTO 0.13 K/mm3 (0.00-0.68); EOSINOPHILS PERCENT AUTO 2 % (0-6); Hematocrit 30.9 % (37.0-53.0); Hemoglobin 9.4 g/dL (13.5-17.5); IMMATURE GRAN ABSOLUTE AUTO 0.04 K/mm3 (0.00-0.10); IMMATURE GRAN PERCENT AUTO 1 % (0-1); LYMPHOCYTES ABSOLUTE AUTO 0.66 K/mm3 (0.84-5.20); LYMPHOCYTES PERCENT AUTO 8 % (21-46); MONOCYTES ABSOLUTE AUTO 0.58 K/mm3 (0.16-1.47); MONOCYTES PERCENT AUTO 7 % (4-13); Mean Corpuscular HGB 28.5 pg (26.0-34.0); Mean Corpuscular HGB Conc 30.4 g/dL (31.5-36.5); Mean Corpuscular Volume 94 fL (80-100); Mean Platelet Volume 9.8 fL (9.1-12.4); NEUTROPHILS ABSOLUTE AUTO 6.87 K/mm3 (1.96-9.15); NEUTROPHILS PERCENT AUTO 83 % (41-73); Platelet Count 314 K/mm3 (150-400); RDW Coefficient Variation 15.2 % (11.7-14.2); RDW Standard Deviation 51.8 fL (35.1-46.3); White Blood Cell Count 8.32 K/mm3 (4.00-11.30)
[2022-02-23 10:38] LABS: Bun/Creatinine Ratio 11.4 (12.0-20.0); Calcium, Blood 8.2 mg/dL (8.5-10.1); Creatinine, Blood 1.23 mg/dL (0.60-1.20)
[2022-02-23] MEDS ORDERED: FUROSEMIDE40 MG PO (11:33)
[2022-02-23] MEDS ORDERED: SUCRALFATE PO (11:34)
[2022-02-23] MEDS ORDERED: DICLOFENAC SOD100 G1 (11:34)
== END 2022-02-23 15:37 | disposition home or self-care (01) ==
LOC: ER 09:07
PROVIDERS: Student in an Organized Health Care Education/Training Program
DX: S50.01XA Contusion of right elbow, initial encounter (principal); S30.1XXA Contusion of abdominal wall, initial encounter; S90.32XA Contusion of left foot, initial encounter; W18.30XA Fall on same level, unspecified, initial encounter; Z79.899 Other long term (current) drug therapy; I50.9 Heart failure, unspecified; I48.91 Unspecified atrial fibrillation
CPT/HCPCS: 36415; 71260; 73070; 73080; 73620; 74177; 80048; 82550; 85025; 96374; 99285-25; A9270; J3010; J7030; Q9967

== ENCOUNTER 2022-07-24 07:41 | Inpatient (IN) | payer MEDICARE, OTHER ==
[~2022-07-24] VITALS: Ht 162.6 cm; Wt 63.5 kg
[~2022-07-24 07:41] MED LIST changes: +DICLOFENAC SOD100 G1; +FUROSEMIDE40 MG PO; +SUCRALFATE PO
[2022-07-24 09:12] LABS: BASOPHILS ABSOLUTE AUTO 0.05 K/mm3 (0.00-0.23); BASOPHILS PERCENT AUTO 0 % (0-2); EOSINOPHILS ABSOLUTE AUTO 0.02 K/mm3 (0.00-0.68); EOSINOPHILS PERCENT AUTO 0 % (0-6); Hematocrit 42.1 % (37.0-53.0); Hemoglobin 13.4 g/dL (13.5-17.5); IMMATURE GRAN ABSOLUTE AUTO 0.08 K/mm3 (0.00-0.10); IMMATURE GRAN PERCENT AUTO 1 % (0-1); LYMPHOCYTES PERCENT AUTO 10 % (21-46); MONOCYTES ABSOLUTE AUTO 0.69 K/mm3 (0.16-1.47); MONOCYTES PERCENT AUTO 6 % (4-13); Mean Corpuscular HGB 27.9 pg (26.0-34.0); Mean Corpuscular HGB Conc 31.8 g/dL (31.5-36.5); Mean Corpuscular Volume 88 fL (80-100); Mean Platelet Volume 9.8 fL (9.1-12.4); NEUTROPHILS ABSOLUTE AUTO 9.83 K/mm3 (1.96-9.15); NEUTROPHILS PERCENT AUTO 83 % (41-73); Platelet Count 286 K/mm3 (150-400); RDW Coefficient Variation 14.3 % (11.7-14.2); RDW Standard Deviation 46.1 fL (35.1-46.3); White Blood Cell Count 11.87 K/mm3 (4.00-11.30)
[2022-07-24 09:31] LABS: Albumin, Blood 3.7 g/dL (3.4-5.0); Albumin/Globulin Ratio 0.9 (0.8-1.8); Bilirubin, Total 0.5 mg/dL (0.1-1.0); Calcium, Blood 9.8 mg/dL (8.5-10.1); Creatinine, Blood 1.26 mg/dL (0.60-1.20); Globulin, Blood 3.9 g/dL (2.2-4.0); Potassium, Blood 3.8 mmol/L (3.5-5.5); Total Protein, Blood 7.6 g/dL (6.4-8.2)
[2022-07-24] MEDS ORDERED: FERSU300 PO (12:13)
[2022-07-24] MEDS ORDERED: POTA10T PO (12:15)
[2022-07-24] MEDS ORDERED: ACET500 PO (12:16)
[2022-07-24 13:18] LABS: Influenza A, PCR NEGATIVE (NEGATIVE); Influenza B, PCR NEGATIVE (NEGATIVE); Resp Syncytial Virus, PCR NEGATIVE (NEGATIVE); SARS-Cov-2 (COVID-19) PCR, MMC NEGATIVE (NEGATIVE)
--- NOTE | 2022-07-24 14:41 | NUR ---
PATIENT CAME FROM ER TODAY AT 1430. LEFT HIP FX PATIENT IS A&OX2-3. HX OF DEMENTIA. BED ALARM ON A PRECAUTION. LEFT HIP IS SWOLLEN BUT DENIES NUMBNESS AND TINGLING. CAN MOVE FINGERS AND TOES WHEN ASKED. IV FLUIDS ARE RUNNING. PATIENT REPORTS MOST PAIN WITH MOVEMENT. THE PLAN IS FOR THE PATIENT TO GO TO THE OR LATER TODAY. PERSON TO NOTIFY MARION WAS CALLED AND NOTIFIED SINCE CALLING GURU THE SPOUSE SHE DIDN'T ANSWER WITH INITIAL CALL. PATIENT HAS CALL LIGHT WITHIN REACH. WILL REMAIN NPO UNTIL AFTER SURGERY.
--- NOTE | 2022-07-24 17:19 | NUR ---
PATIENT WAS BROUGHT TO DAY SURGERY FOR HIS PROCEDURE.
--- NOTE | 2022-07-24 19:42 | NUR ---
PT ARRIVED BACK FROM SURGERY AT 1930. PT RESTING COMFORTABLY. CALL LIGHT IS WITHIN REACH.
[2022-07-25 05:30] LABS: Hematocrit 31.7 % (37.0-53.0); Hemoglobin 9.7 g/dL (13.5-17.5); Mean Corpuscular HGB 27.6 pg (26.0-34.0); Mean Corpuscular HGB Conc 30.6 g/dL (31.5-36.5); Mean Corpuscular Volume 90 fL (80-100); Mean Platelet Volume 10.1 fL (9.1-12.4); Platelet Count 247 K/mm3 (150-400); RDW Coefficient Variation 14.8 % (11.7-14.2); RDW Standard Deviation 48.8 fL (35.1-46.3); Red Blood Cell Count 3.52 M/mm3 (4.30-5.90); White Blood Cell Count 13.36 K/mm3 (4.00-11.30)
--- NOTE | 2022-07-25 05:43 | NUR ---
SHIFT SUMMARY: PT HAD PERIODS OF FORGETFULNESS. ATTEMPTED TO PICK AT DRESSING. BINDER WAS PLACED AROUND PT BANDAGE TO PREVENT PICKING AND HE WAS REDIRECTED OFTEN. PT HAD EPISODE OF INCONTINENCE DURING THE NIGHT BUT WAS ABLE TO USE THE URINAL WITH MINIMAL ASSISTANCE LATER IN THE SHIFT. TOLERATING PO FLUIDS WELL. PT NEEDS ASSISTANCE DRINKING AND EATING. AQUACEL X2 REMAIN IN PLACE WITH MODERATE DRAINAGE ON LOWER BANDAGE. CALL LIGHT REMAINS IN REACH OF PT.
--- NOTE | 2022-07-25 05:44 | NUR ---
2030 PT ARRIVED TO ROOM IN NO DISTRESS. PT ALERT AND ANSWERING QUESTIONS. WCTM.
[2022-07-25 06:11] LABS: Bun/Creatinine Ratio 21.3 (12.0-20.0); Calcium, Blood 8.2 mg/dL (8.5-10.1); Creatinine, Blood 1.36 mg/dL (0.60-1.20); Potassium, Blood 4.6 mmol/L (3.5-5.5)
--- NOTE | 2022-07-25 17:50 | NUR ---
SHIFT SUMMARY PT STRUGGLED w/ PAIN MANAGEMENT w/ THERAPY THIS MORNING. NEW ORDERS RECEIVED & HAVE HAD MUCH BETTER PAIN CONTROL. WAS PAINFUL BUT ABLE TO GET UP TO BSC w/ MAX ASSIST. IS BECOMING MORE CONFUSED THIS AFTERNOON & FREQ THINKS HE IS BACK AT [place]. HE THEN BECOMES UPSET HE DOESN'T HAVE HIS HOME ITEMS. EASILY DISTRACTED. LOWER AQUACEL CHANGED DUE TO DRNG.
[2022-07-26 04:10] LABS: BASOPHILS ABSOLUTE AUTO 0.05 K/mm3 (0.00-0.23); BASOPHILS PERCENT AUTO 1 % (0-2); EOSINOPHILS ABSOLUTE AUTO 0.08 K/mm3 (0.00-0.68); EOSINOPHILS PERCENT AUTO 1 % (0-6); Hematocrit 29.8 % (37.0-53.0); Hemoglobin 9.1 g/dL (13.5-17.5); IMMATURE GRAN ABSOLUTE AUTO 0.03 K/mm3 (0.00-0.10); IMMATURE GRAN PERCENT AUTO 0 % (0-1); LYMPHOCYTES ABSOLUTE AUTO 0.94 K/mm3 (0.84-5.20); LYMPHOCYTES PERCENT AUTO 11 % (21-46); MONOCYTES ABSOLUTE AUTO 0.64 K/mm3 (0.16-1.47); MONOCYTES PERCENT AUTO 8 % (4-13); Mean Corpuscular HGB 27.9 pg (26.0-34.0); Mean Corpuscular HGB Conc 30.5 g/dL (31.5-36.5); Mean Corpuscular Volume 91 fL (80-100); Mean Platelet Volume 10.2 fL (9.1-12.4); NEUTROPHILS ABSOLUTE AUTO 6.49 K/mm3 (1.96-9.15); NEUTROPHILS PERCENT AUTO 79 % (41-73); Platelet Count 204 K/mm3 (150-400); RDW Coefficient Variation 14.7 % (11.7-14.2); RDW Standard Deviation 49.5 fL (35.1-46.3); Red Blood Cell Count 3.26 M/mm3 (4.30-5.90); White Blood Cell Count 8.23 K/mm3 (4.00-11.30)
--- NOTE | 2022-07-26 04:33 | NUR ---
POD2 FOR A NAIL FIXATION OF THE LEFT HIP. VSS. PT SLEPT WELL T/O THE NIGHT. MEDICATED ONCE FOR PAIN WITH FENT. PT WAS ABLE TO REST PEACEFULLY AFTER ADMINSTRATION. VOIDING W/O DIFFICULTY, OCCASIONALLY INCONTINENT. DRESSING ON THE LEFT HIP IS C/D/I. MARKINGG MADE AROUND REDDNESS EXCEEDING THE BANDAGES TO ASSESS PROGRESSION OF RECESSION. PT REMAINED IN BED T/O THE NIGHT. PT IS CURRENLY SLEEPING, BED ALARM ON, CALL LIGHT IN REACH.
[2022-07-26 04:35] LABS: Albumin, Blood 2.8 g/dL (3.4-5.0); Albumin/Globulin Ratio 0.8 (0.8-1.8); Bilirubin, Total 0.6 mg/dL (0.1-1.0); Bun/Creatinine Ratio 20.6 (12.0-20.0); Calcium, Blood 8.7 mg/dL (8.5-10.1); Creatinine, Blood 1.41 mg/dL (0.60-1.20); Globulin, Blood 3.5 g/dL (2.2-4.0); Potassium, Blood 4.3 mmol/L (3.5-5.5); Total Protein, Blood 6.3 g/dL (6.4-8.2)
[2022-07-26 12:43] LABS: SARS-Cov-2 (COVID-19) PCR, MMC NEGATIVE (NEGATIVE)
--- NOTE | 2022-07-26 14:16 | NUR ---
DISCHARGE SUMMARY PT POD #2 FOR L HIP NAILING. AQUACEL DRESSINGS CHANGED. SOME DRAINAGE NOTED ON NEW DRESSING PRIOR TO DC, OTHERWISE DRY AND INTACT. PT WORKED WITH OT AND DANGLED ON SIDE OF BED. PT DISCHARGED TO [facility] AND REPORT CALLED TO [facility].
== END 2022-07-26 14:00 | DRG 481 ==
LOC: ER 07:41 → SURS 11:04
PROVIDERS: Internal Medicine; Nurse Practitioner Acute Care; Orthopaedic Surgery; Student in an Organized Health Care Education/Training Program; ADMIT Internal Medicine
PROC: 0QS736Z Reposition Left Upper Femur with Intramedullary Internal Fixation Device, Percutaneous Approach (ICD-10-PCS; principal; 2022-07-24 16:00)
DX: S72.142A Displaced intertrochanteric fracture of left femur, initial encounter for closed fracture (principal); I50.32 Chronic diastolic (congestive) heart failure; G30.9 Alzheimer's disease, unspecified; F02.80 Dementia in other diseases classified elsewhere, unspecified severity, without behavioral disturbance, psychotic disturbance, mood disturbance, and anxiety; I48.0 Paroxysmal atrial fibrillation; N18.30 Chronic kidney disease, stage 3 unspecified; N40.0 Benign prostatic hyperplasia without lower urinary tract symptoms; Z20.822 Contact with and (suspected) exposure to COVID-19; H40.9 Unspecified glaucoma; Z98.890 Other specified postprocedural states; Z98.49 Cataract extraction status, unspecified eye; Z79.01 Long term (current) use of anticoagulants; Z87.19 Personal history of other diseases of the digestive system; Z79.899 Other long term (current) drug therapy; W18.30XA Fall on same level, unspecified, initial encounter
CPT/HCPCS: 0241U; 36415; 73502; 80048; 80053; 82550; 83880; 85025; 85027; 96374; 96375; 97110; 97112; 97161; 97166; 97530; 99284-25; A9270; C1713; C1769; J0690; J1100; J1650; J1885; J2270; J2370; J2405; J2704; J2795; J3010; J7030; J7040; J7120; U0004

== ENCOUNTER → 2023-03-06 | Outpatient (CLI) | payer MEDICARE, OTHER ==
[~2023-03-06] MED LIST changes: +ACET500 PO; +POTA10T PO
[2023-03-07 10:20] LABS: Source, Urine Clean Catch
[2023-03-07 11:12] LABS: Bilirubin, Urine Neg (Neg); Blood, Urine Neg (Neg); Glucose Qualitative, Urine Neg (Neg); Ketones, Urine Neg (Neg); Leukocyte Esterase, Urine 1+ (Neg); Nitrite, Urine Neg (Neg); Protein, Urine Neg (Neg); Urobilinogen, Urine NORM (Normal)
[2023-03-07 12:02] LABS: Appearance, Urine Clear (Clear); Color, Urine Yellow (P-Yellow)
[2023-03-07 12:03] LABS: Bacteria Not Seen /hpf; Red Blood Cells, Urine Not Seen /hpf (0-2); Squamous Epithelial Cells Rare /hpf (Few); White Blood Cells, Urine 0-2 /hpf (0-5)
== END | disposition home or self-care (01) ==
LOC: LAB SHORT 16:00
PROVIDERS: Family Medicine
DX: N39.0 Urinary tract infection, site not specified (principal)
CPT/HCPCS: 81001

== ENCOUNTER → 2023-07-26 | Outpatient (CLI) | payer MEDICARE, OTHER ==
[2023-07-26 10:56] LABS: Source, Urine Voided
[2023-07-26 11:32] LABS: Appearance, Urine Clear (Clear); Bilirubin, Urine Neg (Neg); Blood, Urine Neg (Neg); Color, Urine Yellow (P-Yellow); Glucose Qualitative, Urine Neg (Neg); Ketones, Urine Neg (Neg); Leukocyte Esterase, Urine 1+ (Neg); Nitrite, Urine Neg (Neg); Protein, Urine Neg (Neg); Specific Gravity, Urine 1.015 (1.003-1.022); Urobilinogen, Urine NORM (Normal)
[2023-07-26 11:40] LABS: Bacteria Rare /hpf; Red Blood Cells, Urine 0-2 /hpf (0-2); Squamous Epithelial Cells Not Seen /hpf (Few)
== END ==
LOC: LAB SHORT 10:54 → LAB 10:54
PROVIDERS: Family Medicine
DX: N39.0 Urinary tract infection, site not specified (principal)
CPT/HCPCS: 81001; 87086

== ENCOUNTER → 2023-09-27 | Outpatient (CLI) | payer MEDICARE, OTHER ==
[2023-09-27 14:14] LABS: BASOPHILS ABSOLUTE AUTO 0.09 K/mm3 (0.00-0.23); BASOPHILS PERCENT AUTO 1 % (0-2); EOSINOPHILS ABSOLUTE AUTO 0.15 K/mm3 (0.00-0.68); EOSINOPHILS PERCENT AUTO 2 % (0-6); Hematocrit 44.3 % (37.0-53.0); Hemoglobin 14.4 g/dL (13.5-17.5); IMMATURE GRAN ABSOLUTE AUTO 0.03 K/mm3 (0.00-0.10); IMMATURE GRAN PERCENT AUTO 0 % (0-1); LYMPHOCYTES ABSOLUTE AUTO 2.19 K/mm3 (0.84-5.20); LYMPHOCYTES PERCENT AUTO 28 % (21-46); MONOCYTES ABSOLUTE AUTO 0.59 K/mm3 (0.16-1.47); MONOCYTES PERCENT AUTO 7 % (4-13); Mean Corpuscular HGB 29.8 pg (26.0-34.0); Mean Corpuscular HGB Conc 32.5 g/dL (31.5-36.5); Mean Corpuscular Volume 92 fL (80-100); Mean Platelet Volume 10.8 fL (9.1-12.4); NEUTROPHILS ABSOLUTE AUTO 4.91 K/mm3 (1.96-9.15); NEUTROPHILS PERCENT AUTO 62 % (41-73); Platelet Count 281 K/mm3 (150-400); RDW Coefficient Variation 13.2 % (11.7-14.2); Red Blood Cell Count 4.83 M/mm3 (4.30-5.90); White Blood Cell Count 7.96 K/mm3 (4.00-11.30)
[2023-09-27 14:29] LABS: Albumin, Blood 3.3 g/dL (3.4-5.0); Albumin/Globulin Ratio 0.8 (0.8-1.8); Bilirubin, Total 0.3 mg/dL (0.1-1.0); Bun/Creatinine Ratio 14.2 (12.0-20.0); Calcium, Blood 8.8 mg/dL (8.5-10.1); Creatinine, Blood 1.13 mg/dL (0.60-1.20); Globulin, Blood 3.9 g/dL (2.2-4.0); Percent Saturation 36.9 % (20.0-50.0); Potassium, Blood 4.7 mmol/L (3.5-5.5); Thyroid Stimulating Hormone 3.22 uIU/mL (0.360-4.800); Total Protein, Blood 7.2 g/dL (6.4-8.2)
== END | disposition home or self-care (01) ==
LOC: LAB SHORT 13:27 → LAB 13:27
PROVIDERS: Family Medicine
DX: I48.20 Chronic atrial fibrillation, unspecified (principal); D50.9 Iron deficiency anemia, unspecified; I50.32 Chronic diastolic (congestive) heart failure
CPT/HCPCS: 80053; 82728; 83540; 83550; 84443; 85025